=== PATIENT | female | born 1950 ===

== ENCOUNTER → 2022-03-24 08:34 | Outpatient (BNVA) | payer MEDICARE, MEDICAID, SELFPAY | PROVIDERS: Visit Provider Psychiatry & Neurology Neurology | DX: R41.89 Other symptoms and signs involving cognitive functions and awareness (principal); R46.89 Other symptoms and signs involving appearance and behavior | CPT/HCPCS: 99202 ==

== ENCOUNTER 2022-04-04 19:10 | Outpatient (REF) | payer MEDICARE, MEDICAID, SELFPAY ==
--- NOTE | ~2022-04-04 | MR_ITS ---
EXAMINATION: MR BRAIN WITHOUT CONTRAST CLINICAL INFORMATION: 72-year-old with self-reported repetitive behavior and headaches. Other symptoms and signs involving cognitive functions and awareness. COMPARISON: None TECHNIQUE: Routine multiplanar multisequence MR imaging of the brain was done without IV contrast. FINDINGS: Brain Volume: Moderate generalized diffuse parenchymal volume loss with bilateral parasylvian predominance is suspected within the limitations of qualitative assessment. Structural: No malformations. Brain and Meninges: DWI sequence demonstrates no restricted diffusion to suggest acute or subacute cerebral ischemia. Gradient refocused imaging demonstrates no abnormal susceptibility-weighted signal loss to suggest hemorrhage, hemosiderin staining or abnormal mineralization. The brain parenchyma shows normal signal intensity on the other pulse sequences and is otherwise normal in morphology. No extra-axial fluid collections, significant space-occupying process or mass effect. Ventricles and Subarachnoid Spaces: The ventricular system and subarachnoid spaces are approximately proportional to the degree of parenchymal volume loss, without hydrocephalus. Orbital Structures: The visualized orbital structures are grossly unremarkable within the limitations of the study. Vascular: Signal voids are noted in the visualized major intracranial vessels. Osseous Structures, Sinuses/Mastoids, Extracranial Soft Tissues: Discogenic degenerative changes and spondylosis at C3-C4, C4-C5 and C5-C6, with degenerative marrow signal changes along the endplates at these levels. Otherwise marrow signal intensity is homogenous and within normal limits. Minor mucosal thickening in the left maxillary sinus with a possible tiny air-fluid level. The visualized extra cranial soft tissue structures are grossly unremarkable. MR/MR head/brain wo con IMPRESSION: 1. No acute intracranial process. No evidence for infarction, hemorrhage, extra-axial fluid collection, space-occupying process, mass effect or hydrocephalus. 2. Moderate generalized diffuse parenchymal volume loss with bilateral parasylvian predominance suspected within the limitations of qualitative assessment. 3. Upper cervical degenerative changes. 4. Minor mucosal thickening in the left maxillary sinus with a possible tiny air-fluid level.
== END 2022-04-04 19:11 | disposition home or self-care (01) ==
LOC: HO.MRI 19:10
PROVIDERS: Visit Provider Nurse Practitioner Family
DX: R41.89 Other symptoms and signs involving cognitive functions and awareness (principal); R46.89 Other symptoms and signs involving appearance and behavior; I10 Essential (primary) hypertension; E78.5 Hyperlipidemia, unspecified
CPT/HCPCS: 70551

== ENCOUNTER → 2022-04-24 09:29 | Outpatient (BNVA) | payer MEDICARE, MEDICAID, SELFPAY | PROVIDERS: Visit Provider Nurse Practitioner Family | DX: R41.89 Other symptoms and signs involving cognitive functions and awareness (principal); R46.89 Other symptoms and signs involving appearance and behavior; F41.9 Anxiety disorder, unspecified | CPT/HCPCS: 99212 ==

== ENCOUNTER → 2022-05-26 08:31 | Outpatient (BNVA) | payer MEDICARE, MEDICAID, SELFPAY | PROVIDERS: Visit Provider Nurse Practitioner Family | DX: R41.89 Other symptoms and signs involving cognitive functions and awareness (principal); R46.89 Other symptoms and signs involving appearance and behavior; F41.9 Anxiety disorder, unspecified; Z79.899 Other long term (current) drug therapy | CPT/HCPCS: 99212 ==

== ENCOUNTER → 2022-06-30 08:23 | Outpatient (BNVA) | payer MEDICARE, MEDICAID, SELFPAY | PROVIDERS: PCP Internal Medicine; Visit Provider Nurse Practitioner Family | DX: R41.89 Other symptoms and signs involving cognitive functions and awareness (principal); R46.89 Other symptoms and signs involving appearance and behavior; F41.9 Anxiety disorder, unspecified | CPT/HCPCS: 99212 ==

== ENCOUNTER 2022-11-22 09:23 | Outpatient (AMB) | payer MEDICARE, MEDICAID, SELFPAY ==
--- NOTE | 2022-11-22 09:19 | MHC.OFFVIS ---
Intake Vital Signs 11/22/22 09:23 Weight 165 lb 4 oz BP 122/82 Blood Pressure Location Lt brachial Position Sitting Pulse 91 Pulse Source Pulse Oximeter Pulse Oximetry (%) 100 Oxygen Delivery Method Room Air Intake Visit Reasons: f/u Memory Loss - LVM Intake Note: F/U memory loss, per daughter more repaddative questioning on what day or time it is District Medical Examiner Required: No Allergies No Known Allergies Allergy (Verified 11/22/22 09:21) HPI HPI Comments History of Present Illness Details 72 y/o female patient presents with her daughter in law for follow up of declined memory and anxiety. Pt is in daytime program, and she is more active in physically and cognitively. She can be mildly confused but overall her memory and cognitive function has improved. Pt is on memantine 28 mg ER daily. Denies side effects. Her hallucination is lot better, much manageable. Pt visit [place] and her mood has been stable. She is on sertraline 25 mg for anxiety. Pt sleeps a little better with seroquel 12.5 mg and melatonin 6 mg. Pt tried ativan and trazodone for anxiety and sleep in the past, but it did not help and also she woke up very groggy. ? Pt is independent in ADLs, but not cooking. She lives in her son's house. [facility] Medical History Anxiety GERD (gastroesophageal reflux disease) HTN (hypertension) Hyperlipidemia Hypothyroidism Family History Father Cancer Mother Cancer Brother Cancer Sister Tumors Social History (Updated 11/22/22 @ 09:23 by Carole Stephenson CMA) Alcohol intake: never Patient Tobacco Use Status: Never used Tobacco Review of Systems Const All systems reviewed & are unremarkable except as noted in HPI and below Physical Exam Vital Signs: Last Vital Signs Pulse 91 11/22/22 09:23 BP 122/82 11/22/22 09:23 Pulse Ox 100 11/22/22 09:23 Oxygen Delivery Method Room Air 11/22/22 09:23 Const General: cooperative Nutritional Appearance: average body habitus Orientation/consciousness: oriented to person and oriented to place Neuro General: oriented to person, oriented to place and tone normal Cranial nerves: Yes Bilaterally intact EOM present, Yes Nystagmus not present, Yes Normal facial strength present, Yes Midline tongue present and Yes Ability to bilaterally elevate shoulders present Cognition (Neuro): abnormal cognition Gait exam (Neuro): Antalgic gait present Psych Appearance: grossly normal Mental Status: mental status grossly normal Affect: normal affect Attitude: cooperative Assessment & Plan Assessment & Plan (1) Cognitive and behavioral changes: Comment: Likely dementia - alzheimers vs mixed Code(s): R41.89 - Other symptoms and signs involving cognitive functions and awareness; R46.89 - Other symptoms and signs involving appearance and behavior (2) Anxiety: Code(s): F41.9 - Anxiety disorder, unspecified Plan Advised patient to continue memantine 28 mg ER daily. Start donepezil 5 mg qHS. Continue to take sertraline 25 mg daily and supplement vitamin D. Continue quetiapine 12.5 mg qHS for hallucination and anxiety. Encouraged patient to participate more cognitive and physical activity. Pt may use PO melatonin 3-6 mg qHS. Medications: New donepezil 5 mg PO BEDTIME 90 days 90 tabs 1RF Coding Level of Care Code Est Pt Level 4 (36631) Diagnoses Cognitive and behavioral changes R41.89; R46.89 Anxiety F41.9
[2022-11-22 09:23] VITALS: BP 122/82; PULSE 91; O2SAT 100
== END 2022-11-22 09:38 | disposition home or self-care (01) ==
PROVIDERS: Visit Provider Nurse Practitioner Family
DX: R41.89 Other symptoms and signs involving cognitive functions and awareness (principal); F41.9 Anxiety disorder, unspecified
CPT/HCPCS: 99214

== ENCOUNTER → 2022-11-22 09:23 | Outpatient (BNVA) | payer MEDICARE, MEDICAID, SELFPAY | PROVIDERS: Visit Provider Nurse Practitioner Family | DX: R41.89 Other symptoms and signs involving cognitive functions and awareness (principal); R46.89 Other symptoms and signs involving appearance and behavior; F41.9 Anxiety disorder, unspecified | CPT/HCPCS: 99212 ==

== ENCOUNTER 2023-05-28 08:54 | Outpatient (AMB) | payer MEDICARE, MEDICAID, SELFPAY ==
--- NOTE | 2023-05-28 08:56 | A.OFFVIS_ITS ---
Intake Vital Signs 05/28/23 09:14 Height 5 ft 2 in Weight 179 lb 6 oz BMI 32.8 BP 120/80 Blood Pressure Location Rt brachial Position Sitting Pulse 94 Pulse Source Pulse Oximeter Pulse Oximetry (%) 97 Oxygen Delivery Method Room Air Intake Visit Reasons: 6m follow up-CONF Intake Note: Patient presents for 6 month f/u. Allergies No Known Allergies Allergy (Verified 05/28/23 09:13) HPI HPI Comments History of Present Illness Details 73 y/o female patient presents with her daughter in law for follow up of declined memory and anxiety. Pt is in daytime program, and she is more active in physically and cognitively. She can be mildly confused but overall her memory and cognitive function has improved. However, she keeps forgetting if she has had meals and asks her daughter in law if she has eaten yet. Pt is on memantine 28 mg ER daily. Denies side effects. Pt's daughter in law reports that she has hallucination rarely now. Pt sleeps a little better with seroquel 12.5 mg and melatonin 6 mg. Pt visit [place] and her mood has been stable. She is on sertraline 25 mg for anxiety. Pt tried ativan and trazodone for anxiety and sleep in the past, but it did not help and also she woke up very groggy. ? Pt is independent in ADLs, but not cooking. She lives in her son's house. [facility] Medical History Anxiety GERD (gastroesophageal reflux disease) HTN (hypertension) Hyperlipidemia Hypothyroidism Family History (Updated 05/28/23 @ 09:14 by Aydee Preciado CMA) Father Cancer Mother Cancer Brother Cancer Sister Tumors Brother Stroke Social History Alcohol intake: never Patient Tobacco Use Status: Never used Tobacco Review of Systems Const All systems reviewed & are unremarkable except as noted in HPI and below Physical Exam Vital Signs: Last Vital Signs Pulse 94 05/28/23 09:14 BP 120/80 05/28/23 09:14 Pulse Ox 97 05/28/23 09:14 Oxygen Delivery Method Room Air 05/28/23 09:14 BMI result Body Mass Index 32.8 Const General: cooperative Nutritional Appearance: average body habitus Orientation/consciousness: oriented to person and oriented to place Neuro General: oriented to person, oriented to place and tone normal Cranial nerves: Yes Bilaterally intact EOM present, Yes Nystagmus not present, Yes Normal facial strength present, Yes Midline tongue present and Yes Ability to bilaterally elevate shoulders present Cognition (Neuro): abnormal cognition Gait exam (Neuro): Antalgic gait present Psych Appearance: grossly normal Mental Status: mental status grossly normal Affect: normal affect Attitude: cooperative Assessment & Plan Assessment & Plan (1) Cognitive and behavioral changes: Comment: Likely dementia - alzheimers vs mixed Code(s): R41.89 - Other symptoms and signs involving cognitive functions and awareness; R46.89 - Other symptoms and signs involving appearance and behavior (2) Anxiety: Code(s): F41.9 - Anxiety disorder, unspecified Plan Advised patient to continue memantine 28 mg ER daily. Increase donepezil 10 mg qHS. Continue to take sertraline 25 mg daily and supplement vitamin D. Continue quetiapine 12.5 mg qHS for hallucination and anxiety. Encouraged patient to participate more cognitive and physical activity. Pt may use PO melatonin 3-6 mg qHS. Medications: New donepezil 10 mg PO BEDTIME 30 tabs 6RF 30 days Discontinued donepezil Discontinued Reason: Doctor's Order 5 mg PO BEDTIME 90 days 90 tabs 1RF Coding Level of Care Code Est Pt Level 4 (55170) Diagnoses Cognitive and behavioral changes R41.89; R46.89 Anxiety F41.9
[2023-05-28 09:14] VITALS: BP 120/80; PULSE 94; O2SAT 97; BMI 32.8
== END 2023-05-28 09:40 | disposition home or self-care (01) ==
PROVIDERS: PCP Internal Medicine; Visit Provider Nurse Practitioner Family
DX: R41.89 Other symptoms and signs involving cognitive functions and awareness (principal); F41.9 Anxiety disorder, unspecified
CPT/HCPCS: 99214

== ENCOUNTER → 2023-05-28 08:54 | Outpatient (BNVA) | payer MEDICARE, MEDICAID, SELFPAY | PROVIDERS: PCP Internal Medicine; Visit Provider Nurse Practitioner Family | DX: R41.89 Other symptoms and signs involving cognitive functions and awareness (principal); R46.89 Other symptoms and signs involving appearance and behavior; F41.9 Anxiety disorder, unspecified | CPT/HCPCS: 99212 ==

== ENCOUNTER 2023-11-26 09:22 | Outpatient (AMB) | payer MEDICARE, MEDICAID, SELFPAY ==
[2023-11-26 09:23] VITALS: BP 128/82
--- NOTE | 2023-11-26 09:23 | MHC.OFFVIS ---
Vital Signs 11/26/23 09:23 Weight 174 lb BP 128/82 Blood Pressure Location Rt brachial Position Sitting Intake Visit Reasons: 6m follow up-LVM Intake Note: Patient presents for 6 month follow up. Patient is getting aggressive when it comes to dressing and eating. Allergies No Known Allergies Allergy (Verified 11/26/23 09:28) Medication List - Last Reconciled 11/26/23 by DAHLIA Jacobs cholecalciferol (vitamin D3) 125 mcg PO DAILY donepezil 10 mg PO BEDTIME 30 days levothyroxine 25 mcg PO DAILY memantine 28 mg PO DAILY 30 days omeprazole 20 mg PO DAILY quetiapine 12.5 mg (1/2 x 25 mg) PO BEDTIME 30 days rosuvastatin 20 mg PO DAILY sertraline 25 mg PO DAILY HPI Comments Details: 73-yr-old female presents for f/u visit. Pt is accompanied by her dtr-in-law, Odalys. Tolerated increase in Donepazil well. Pt's cognition is better but there are some behaviors. She is particular with her clothing- will say that the clothes are too ugly, too tight, too loose, or the clothes are hurting her leg- a little while ago had stepped wrong and hurt her knee but this has gotten better. She is particular w/ what she eats- will feel the food id dry. Recently threw her chicken thigh at her granddtr- as she said it was dry. She may forget that she took her evening pills- and become adamant that she needs to retake her meds. She may argue w/ her son, that she took her shower already but has not. Dtr notes that overall they can usually redirect her. They try strategies to promote independence- offering clothing choices, food choices etc. Dtr notes that she will be going away for a work trip- her pt's dtr will help and sometimes w/ this change pt can have increased behaviors- has once left the house when her dtr was helping her. Wonders if they can have a prn Tx- has used Lorazepam 0.5mg prn and toelarted well during recent trip to [place]. Pt herself reports she is doing ok. States she eats, drinks well, just tries to minimize salt intake d/t her thyroid d/o. She has joint pain, shoulder pain. Uses Tylenol prn which helps. She goes to her program 5 days per week which she likes- plays games, puzzles, and has friends there. [facility] Medical History Anxiety GERD (gastroesophageal reflux disease) HTN (hypertension) Hyperlipidemia Hypothyroidism Family History Father Cancer Mother Cancer Brother Cancer Sister Tumors Brother Stroke Social History Alcohol intake: never Patient Tobacco Use Status: Never used Tobacco Physical Exam Vital Signs: Last Vital Signs BP 128/82 11/26/23 09:23 Const General: cooperative and no acute distress Resp Effort & Inspection: normal respiratory effort and able to speak in complete sentences Neuro Other: Alert to person and place. Respnds appropriately w/ STM lapses. Can state it is summer. Unable to state month, date, year. General: CN's II-XI intact bilaterally Motor exam (neuro): 5/5 motor strength present throughout Psych Appearance: grossly normal Assessment & Plan Assessment & Plan (1) Dementia: Comment: Likely Alzheimer's. Brain MRI w/o indications of vascular insults. Code(s): F03.90 - Unspecified dementia, unspecified severity, without behavioral disturbance, psychotic disturbance, mood disturbance, and anxiety Category: Medical (2) Cognitive and behavioral changes: Comment: Likely dementia - alzheimers vs mixed Code(s): R41.89 - Other symptoms and signs involving cognitive functions and awareness; R46.89 - Other symptoms and signs involving appearance and behavior Category: Medical Plan Continue: Memantine 28 mg ER daily. Donepezil 10 mg qHS. Sertraline 25 mg daily Vitamin D supplement Quetiapine 12.5 mg qHS for hallucination and anxiety. May take extra 1/2 tab per day prn. If ineffective, consider Lorazepam 0.5mg prn. Melatonin 3-6 mg qHS prn sleep. Continue to engage in regular cognitive and physical activity. Continue day program. Encouraged family to continue behavioral modification strategies to redirect pt, offer limited choices, not engage in direct confrontations/arguments. Alzheimer's association website is a good resource. Medications: Changed From memantine 28 mg PO DAILY 30 days 30 ea 6RF To memantine 28 mg PO DAILY 90 days 90 ea 3RF From cholecalciferol (vitamin D3) 125 mcg PO DAILY 30 caps 6RF To cholecalciferol (vitamin D3) 125 mcg PO DAILY 90 days 90 caps 3RF From donepezil 10 mg PO BEDTIME 30 days 30 tabs 6RF To donepezil 10 mg PO BEDTIME 90 days 90 tabs 3RF From quetiapine 12.5 mg (1/2 x 25 mg) PO BEDTIME 30 days 15 tabs 3RF To quetiapine may take extra 1/2 tab per day prn agitation. 12.5 mg (1/2 x 25 mg) PO BEDTIME 90 days 90 tabs 1RF Coding Level of Care Code Est Pt Level 4 (34687) Diagnoses Dementia F03.90 Cognitive and behavioral changes R41.89; R46.89
== END 2023-11-26 10:16 | disposition home or self-care (01) ==
PROVIDERS: PCP Internal Medicine; Visit Provider Nurse Practitioner Family
DX: F03.90 Unspecified dementia, unspecified severity, without behavioral disturbance, psychotic disturbance, mood disturbance, and anxiety (principal); R41.89 Other symptoms and signs involving cognitive functions and awareness; R46.89 Other symptoms and signs involving appearance and behavior
CPT/HCPCS: 99214

== ENCOUNTER → 2023-11-26 09:22 | Outpatient (BNVA) | payer MEDICARE, MEDICAID, SELFPAY | PROVIDERS: PCP Internal Medicine; Visit Provider Nurse Practitioner Family | DX: F03.90 Unspecified dementia, unspecified severity, without behavioral disturbance, psychotic disturbance, mood disturbance, and anxiety (principal); R41.89 Other symptoms and signs involving cognitive functions and awareness | CPT/HCPCS: 99212 ==

== ENCOUNTER 2024-06-03 08:49 | Outpatient (AMB) | payer MEDICARE, MEDICAID, SELFPAY ==
--- NOTE | 2024-06-03 08:57 | A.OFFVIS_ITS ---
Vital Signs 06/03/24 08:58 Weight 183 lb BP 150/90 H Blood Pressure Location Lt brachial Position Sitting Pulse 70 Pulse Source Pulse Oximeter Pulse Oximetry (%) 96 Oxygen Delivery Method Room Air Intake Visit Reasons: F/U 6mo Intake Note: Patient presents follow up Dementia medication follow up Automotive Glass Specialist Required: No Allergies No Known Allergies Allergy (Verified 06/03/24 09:01) Medication List - Last Reconciled 06/03/24 by DAHLIA Jacobs cholecalciferol (vitamin D3) 125 mcg PO DAILY 90 days donepezil 10 mg PO BEDTIME 90 days levothyroxine 25 mcg PO DAILY memantine 28 mg PO DAILY 90 days omeprazole 20 mg PO DAILY quetiapine 12.5 mg (1/2 x 25 mg) PO BEDTIME 90 days rosuvastatin 20 mg PO DAILY sertraline 25 mg PO DAILY HPI Comments Details: 73-yr-old female presents for f/u visit for dementia. Pt is accompanied by her dtr-in-law, Odalys. Patient denies interval history changes. However, she states she is quite bothered by right ear ringing. She denies recent URI s/s. Recently was prescribed drops to reduce wax buildup, harvest was not helpful. She denies dizziness, headaches, ear pain. Overall patient is better. Pt's cognition remain stable. Though there is still forgetfulness repetitiveness. She continues to use support with ADLs and IADLs. She is she is still particular w/ what she eats- will feel the food id dry. [id number] also notes she is in of a new pair dentures, however replacement was denied by insurance due to concern patient would lose the dentures. However, [id number] notes since she son, patient has not lost any important items as per family and the D program provide 247 support. She is no longer forgetting to take medications, though at times she forget that she took family has to show her that she did. Patient is having less behaviors, family just occasionally needs to use p.r.n. quetiapine- which is helpful. She continues to go to her day program 5 days per week which she likes- plays games, puzzles, and has friends there. [facility] Medical History Anxiety GERD (gastroesophageal reflux disease) HTN (hypertension) Hyperlipidemia Hypothyroidism Family History Father Cancer Mother Cancer Brother Cancer Sister Tumors Brother Stroke Social History Alcohol intake: never Patient Tobacco Use Status: Never used Tobacco Physical Exam Vital Signs: Last Vital Signs Pulse 70 06/03/24 08:58 BP 150/90 H 06/03/24 08:58 Pulse Ox 96 06/03/24 08:58 Oxygen Delivery Method Room Air 06/03/24 08:58 Const General: cooperative and no acute distress HEENT Other: Right external ear canal fully occluded due to presence of wax Left external ear canal mild wax, with normal TM. No external ear pain. Resp Effort & Inspection: normal respiratory effort and able to speak in complete sentences Neuro Other: Alert to person and place. Responds appropriately w/ STM lapses. General: CN's II-XI intact bilaterally Motor exam (neuro): 5/5 motor strength present throughout Psych Appearance: grossly normal Assessment & Plan Assessment & Plan (1) Dementia: Comment: Likely Alzheimer's. Brain MRI w/o indications of vascular insults. Code(s): F03.90 - Unspecified dementia, unspecified severity, without behavioral disturbance, psychotic disturbance, mood disturbance, and anxiety Category: Medical (2) Cognitive and behavioral changes: Comment: Likely dementia - alzheimers vs mixed Code(s): R41.89 - Other symptoms and signs involving cognitive functions and awareness; R46.89 - Other symptoms and signs involving appearance and behavior Category: Medical Plan For dementia and behavioral changes:: Memantine 28 mg ER daily. Donepezil 10 mg qHS. Sertraline 25 mg daily Vitamin D supplement Quetiapine 12.5 mg qHS for hallucination and anxiety. May take extra 1/2 tab per day prn. Melatonin 3-6 mg qHS prn sleep. If patient wants to travel again, we will supply a short course of Lorazepam 0.5mg prn- which has been beneficial in the past. Continue 24/7 supportive care. Patient would benefit from the fear of well fitting dentures, as this would likely improve patient's nutritional intake. Patient lives supportive environment, and is well supervised, risk for losing dentures will be very minimal. Continue to engage in regular cognitive and physical activity. Continue day program. Continue behavioral modification strategies to redirect pt, offer limited choices, not engage in direct confrontations/arguments. Alzheimer's association website is a good resource. For right ear tinnitus: Trial another course of OTC ear drops for wax removal/flush. Advised to use care and not insert anything into the ear canal to avoid ruptured TM. If ineffective, advised to speak with PCP regarding ENT consult. Pt to follow-up in 6 months or sooner prn. Medications: Refilled quetiapine may take extra 1/2 tab per day prn agitation. 12.5 mg (1/2 x 25 mg) PO BEDTIME 90 tabs 1RF 90 days Coding Level of Care Code Est Pt Level 4 (71210) Diagnoses Dementia F03.90 Cognitive and behavioral changes R41.89; R46.89
[2024-06-03 08:58] VITALS: BP 150/90; PULSE 70; O2SAT 96
--- OUTSIDE RECORDS SUMMARY | 2024-06-03 09:30 | XMS_ITS | Encounter Summary ---
Author Organization [facility] Address [address] [place] [address] Care Team Providers Care Online Publisher Name Role Phone Teodoro Fernandez MD Primary Care Provider [phone] Reason for Visit * Reason Comments Leg Pain Encounter Details Date Type Department Care Team (Late st Contact Info) Description 05/16/2024 2:30 PM EST Office Visit Restaurant Host/Hostess - [facility] [address] [place] [address] Herve Stiles PA [address] [place] [address] Hypothyroidism, unspecified type (Primary Dx); Mixed hyperlipidemia; Chronic pain of right knee; Dementia, unspecified dementia severity, unspecified dementia type, unspecified whether behavioral, psychotic, or mood disturbance or anxiety (CMS/FORMERLY [facility]) Social History Tobacco Use Types Packs/Day Years Used Date Smoking Tobacco: Never Smokeless Tobacco: Never Alcohol Use Standard Drinks/Week Comments Never 0 (1 standard drink = 0.6 oz pur e alcohol) Comments Unknown Sex and Gender Information Value Date Recorded Sex Assigned at Not on file Legal Sex Female 9:07 AM EST Gender Identity Not on file Sexual Orientation Not on file documented as of this encounter Last Filed Vital Signs Vital Sign Reading Time Taken Comments Blood Pressure 128/86 05/16/2024 2:34 PM EST Pulse 72 05/16/2024 2:34 PM EST Temperature - - Respiratory Rate - - Oxygen Saturation - - Inhaled Oxygen Concentration - - Weight 82.9 kg (182 lb 12.8 oz) 05/16/2024 2:34 PM EST Height - - Body Mass Index 33.43 11/12/2023 12:02 PM EDT documented in this encounter Ordered Prescriptions Prescription Sig Dispense Quantity Refills Last Filled Start Date End Date levothyroxine (SYNTHROID, LEVOTHROID) 75 mcg tablet Take 1 tablet (75 mcg total) by mouth 1 (one) time each day. 90 each 1 05/19/2024 6 carbamide peroxide (DEBROX) 6.5 % otic solution Administer 5-10 drops into the right ear 2 (two) times a day for 4 days. 15 mL 05/16/2024 5 acetaminophen (Tylenol 8 Hour) 650 mg 8 hr tablet Take 1 tablet (650 mg total) by mouth every 8 (eight) hours if needed for mild pain for up to 10 days. Do not crush, chew, or split. 90 tablet 1 05/16/2024 5 documented in this encounter Progress Notes * TASHA Otero - 05/16/2024 2:30 PM ESTAddended by: HERVE STILES on: 05/19/2024 09:45 AM Modules accepted: Orders * TASHA Otero - 05/16/2024 2:30 PM EST CHIEF COMPLAINT: Leg Pain IDENTIFIER: Kyung Alexandra is a 74 y.o. old female. Here with son. HPI: Kyung Alexandra presents secondary to Follow-up on chronic conditions. History of dementia, GERD, hyperlipidemia, hypothyroidism. Last seen 11/12/2023 for follow-up of chronic conditions and annual wellness visit. No changes to meds. She does mention right knee pain. X-rays from a year ago showed moderate arthritis of the right knee. Right now pain is mild but does experience increased severity and swelling occasionally. Patient son informs me that this typically gets worse with colder weather. No recent injuries. She has not tried anything for relief. Also mentions intermittent right ear pain ongoing for the last 4 months. This happens very infrequently. Last episode was yesterday. No dizziness, tinnitus, fevers, chills. Hearing is okay. Dementia: Seroquel 12.5 mg nightly, Zoloft 25 mg daily, Aricept 10 mg nightly, Namenda 7 mg daily. Patient has been doing much better since being started on this regimen through neurology. Hypothyroidism: Levothyroxine 50 mcg daily. Last TSH 12/18/2023 slightly elevated. Has been compliant with levothyroxine every morning on an empty stomach. HLD: Crestor 20 mg nightly. No myalgia. Lab Results Component Value Date CHOL 192 04/21/2022 TRIG 69 04/21/2022 HDL 95 04/21/2022 ROS: See HPI for pertinent positives and detailed description. HEENT: See HPI Cardiovascular: Denies palpitations, chest pain Respiratory: Denies SOB Musculoskeletal: See HPI PAST MEDICAL HISTORY: Patient Active Problem List Diagnosis Date Noted Hypothyroidism Dementia ([facility]) 09/12/2022 Hyperlipidemia 03/06/2022 Gastroesophageal reflux disease 06/14/2021 Past Surgical History: Procedure Laterality Date OTHER SURGICAL HISTORY PROCEDURE: DENIES PREVIOUS SURGERY SOCIAL HISTORY: Social History Tobacco Use Smoking status: Never Smokeless tobacco: Never Substance Use Topics Alcohol use: Never FAMILY HISTORY: Family History Problem Relation Name Age of Onset Alzheimer's disease Father Hypertension Brother Family Status Relation Name Status Father Brother Alive Mother No partnership data on file MEDICATIONS DISCONTINUED/REORDERED: Medications Discontinued During This Encounter Medication Reason predniSONE (DELTASONE) 20 mg tablet Discontinued by another clinician ACTIVE MEDICATIONS: Outpatient Medications Marked as Taking for the 05/16/24 encounter (Office Visit) with TASHA Menjivar Medication Sig Dispense Refill cholecalciferol (VITAMIN D-3) 25 mcg (1,000 unit) tablet Take 1,000 Int'l Units by mouth daily. donepeziL (ARICEPT) 10 mg tablet Take 1 tablet (10 mg total) by mouth. at bedtime. levothyroxine (SYNTHROID, LEVOTHROID) 50 mcg tablet Take 1 Tablet by mouth daily for 360 days. LORazepam (ATIVAN) 0.5 mg tablet Take 1 Tablet by mouth daily as needed for Anxiety (prior to flying). memantine (NAMENDA XR) 7 mg extended release capsule Take 1 capsule (7 mg total) by mouth 1 (one) time each day. 90 capsule 1 omeprazole (PriLOSEC) [address] capsule Take 1 capsule (20 mg total) by mouth 1 (one) time each day. QUEtiapine (SEROquel) 25 mg tablet Take 0.5 tablets (12.5 mg total) by mouth at bedtime. rosuvastatin (CRESTOR) 20 mg tablet Take 1 tablet (20 mg total) by mouth 1 (one) time each day. 90 tablet 1 sertraline (ZOLOFT) 25 mg tablet TAKE 1 TABLET BY MOUTH EVERY DAY 90 tablet 1 ALLERGIES: No Known Allergies PHYSICAL EXAM: Visit Vitals BP 128/86 Pulse 72 Wt 82.9 kg (182 lb 12.8 oz) BMI 33.43 kg/m?? Smoking Status Never BSA 1.84 m?? The patient is overweight. Approaches towards weight loss are encouraged per recommendations below: -Reviewed reduction and fatty/greasy/fast foods, increased aerobic exercise, and eating 4-5 small meals consistently throughout the day General: Alert, calm, no acute distress. HEENT: Normocephalic/atraumatic, EOMI. cerumen impaction right side. Left TM and canal normal. Skin: Warm, moist. Cardiovascular: Regular rate and rhythm. No murmurs, rubs, or gallops Lungs: CTA, no crackles, wheezes or rhonchi. Musculoskeletal: No edema, erythema of the knee. Some stiffness and tenderness with knee extension.No TTP bilateral joint line spaces. Neuro: COA x 1 Psych: mood and affect appropriate for situation IMAGING: NA IMPRESSION: 1. Hypothyroidism, unspecified type 2. Mixed hyperlipidemia 3. Chronic pain of right knee 4. Dementia, unspecified dementia severity, unspecified dementia type, unspecified whether behavioral, psychotic, or mood disturbance or anxiety ([facility]) PLAN: Right knee pain: Suspect OA. Recommend Tylenol arthritis 650 mg 3 times daily as needed. Right ear pain: Exam shows cerumen impaction. Provided with Debrox and will have patient return in 1 week for flush. Dementia: Continue with neurology on current regimen. Hypothyroidism: Repeat TSH. Remain on levothyroxine 50 mcg daily. HLD: Update CMP. Remain on Crestor 20 mg nightly. We have discussed the above medication(s) at length. I have explained the indications as well as common side effects and risks. The patient understands and accepts these risks and wishes to proceed with the pharmacological treatment. All of the patient's questions were answered at this time. Pt voices understanding and is in agreement with the above plan. Symptoms and/or concerns that should warrant emergency evaluation/treatment have been discussed. Follow up evaluation will be based upon the plan as stated. If any questions should arise in the interim/future please contact the officefor assistance. Medication and lab orders: Orders Placed This Encounter Procedures Thyroid stimulating hormone with reflex to free t4 and free t3 Comprehensive metabolic panel Other orders: None I have maintained a long-term, longitudinal relationship with this patient leading to the extensivework up, and management associated with the medical care of this patient. TASHA Otero on 05/16/2024 at 2:52 PM EST documented in this encounter Plan of Treatment Upcoming Encounters Date Type Department Care Team (Late st Contact Info) Description 06/19/2024 1:00 PM EDT Office Visit Restaurant Host/Hostess - [facility] [address] [place] [address] Herve Stiles PA [address] [place] [address] Scheduled Orders Name Type Priority Associated Diagnoses Orde r Schedule Thyroid stimulating hormone with reflex to free t4 and free t3 Lab Routine Hypothyroidism, unspecified type 1 Occurrences starting 05/19/2024 until 05/19/2025 documented as of this encounter Results * (ABNORMAL) Comprehensive metabolic panel (05/16/2024 3:23 PM EST) Sodium 144 133 - 145 mmol/L LAB CHEMISTRY METHOD 05/16/2024 7:[address] [facility] Potassium 4.2 3.5 - 5.5 mmol/L LAB CHEMISTRY METHOD 05/16/2024 7:[address] [facility] Chloride 110 96 - 110 mmol/L LAB CHEMISTRY METHOD 05/16/2024 7:[address] [facility] CO2 32 21 - 32 mmol/L LAB CHEMISTRY METHOD 05/16/2024 7:[address] [facility] Anion Gap 2(L) 3 - 11 LAB CHEMISTRY METHOD 05/16/2024 7:[address] [facility] Glucose 73 70 - 100 mg/dL LAB CHEMISTRY METHOD 05/16/2024 7:[address] [facility] BUN 15 5 - 25 mg/dL LAB CHEMISTRY METHOD 05/16/2024 7:[address] [facility] Creatinine 0.66 0.50 - 1.10 mg/dL LAB CHEMISTRY METHOD 05/16/2024 7:[address] [facility] eGFR 92 >=60 mL/min/1. 73m2 LAB CHEMISTRY METHOD 05/16/2024 7:[address] [facility] Comment:Calculation based on the??Chronic Kidney Disease Epidemiology Collaboration (CKD-EPI) equation refit??without adjustment for race. BUN/Creatinine Ratio 22.7 LAB CHEMISTRY METHOD 05/16/2024 7:[address] [facility] Calcium 9.7 8.5 - 10.5 mg/dL LAB CHEMISTRY METHOD 05/16/2024 7:[address] [facility] AST (SGOT) 22 10 - 42 unit/L LAB CHEMISTRY METHOD 05/16/2024 7:[address] [facility] ALT (SGPT) 21 10 - 60 unit/L LAB CHEMISTRY METHOD 05/16/2024 7:[address] [facility] Alkaline Phosphatase 89 42 - 121 unit/L LAB CHEMISTRY METHOD 05/16/2024 7:[address] [facility] Total Protein 7.9 6.0 - 8.0 g/dL LAB CHEMISTRY METHOD 05/16/2024 7:[address] [facility] Albumin 4.0 3.2 - 5.0 g/dL LAB CHEMISTRY METHOD 05/16/2024 7:[address] [facility] Total Bilirubin 0.3 0.0 - 1.4 mg/dL LAB CHEMISTRY METHOD 05/16/2024 7:[address] [facility] Blood Venous blood specimen / Unknown Venipuncture / Unknown 05/16/2024 3:23 PM EST 05/16/2024 3:23 PM EST Herve [facility] BLOOD ORDERABLES Fi nal Result Performing Organization Address [facility] Co de Phone Number [facility] [address] [place] [address], [place] [phone] * (ABNORMAL) Thyroid stimulating hormone with reflex to free t4 and free t3 (05/16/2024 3:23 PM EST) TSH 8.72(H) 0.40 - 4.00 mcIU/mL LAB CHEMISTRY METHOD 05/16/2024 7:[address] [facility] Blood Venous blood specimen / Unknown Venipuncture / Unknown 05/16/2024 3:23 PM EST 05/16/2024 3:23 PM EST H[facility] BLOOD ORDERABLES Fi nal Result Performing Organization Address [facility] de Phone Number [facility] [address] [place] [address], [place] [phone] documented in this encounter Visit Diagnoses Diagnosis Hypothyroidism, unspecified type- Primary Mixed hyperlipidemia Chronic pain of right knee Dementia, unspecified dementia severity, unspecified dementia type, unspecified whether behavioral, psychotic, or mood disturbance or anxiety (CMS/[facility]) documented in this encounter Discontinued Medications Medication Sig Discontinue Reason Start Date End Da te predniSONE (DELTASONE) 20 mg tablet Take 1 tablet (20 mg total) by mouth 2 (two) times a day. Discontinued by another clinician 08/24/2023 05/16/2024 levothyroxine (SYNTHROID, LEVOTHROID) 50 mcg tablet Take 1 Tablet by mouth daily for 360 days. 12/19/2023 05/19/2024 documented as of this encounter Care Teams Online Publisher Relationship Specialty Start Date End Date Teodoro Fernandez MD [address] [place] [address] [place] [address] PCP - General Internal Medicine 03/10/24 documented as of this encounter
--- OUTSIDE RECORDS SUMMARY | 2024-06-03 09:30 | XMS_ITS | Encounter Summary ---
Author Organization [facility] Address [address] [place] [address] Care Team Providers Care Camera Systems Engineer Name Role Phone Teodoro Fernandez MD Primary Care Provider [phone] Encounter Details Date Type Department Care Team (Late st Contact Info) Description 05/16/2024 Telephone In Store Marketing Representative - [facility] [address] [place] [address] Afia Rhoades [place] Social History Tobacco Use Types Packs/Day Years [...] on file documented as of this encounter Progress Notes * Afia Rhoades MA - 05/16/2024 4:03 PM EST error documented in this encounter Plan of Treatment Upcoming Encounters Date Type Department Care Team (Late st Contact Info) Description 06/19/2024 1:00 PM EDT Office Visit In Store Marketing Representative - [facility] [address] [place] [address] Tito Stiles PA [address] [place] [address] documented as of this encounter Visit Diagnoses Not on filedocumented in this encounter Care Teams Camera Systems Engineer Relationship Specialty Start Date End Date Teodoro Fernandez MD [address] [facility] [place] [address] PCP - General Internal Medicine 03/10/24 documented as of this encounter
--- OUTSIDE RECORDS SUMMARY | 2024-06-03 09:30 | XMS_ITS | Clinical Summary ---
Author Organization [facility] Address [address] [place] [address] Care Team Providers Care Redye Hand Name Role Phone Kayla Patrick PA-C Primary Care Provider [phone] Source Comments PLEASE NOTE, if this patient is a minor, it may be UNLAWFUL to discuss sensitive information that is contained in these records (such as FAMILY PLANNING, MENTAL HEALTH or SUBSTANCE ABUSE) with the minor patient's parent or other person without the patient's specific authorization.[facility] Allergies No known active allergies Medications carbamide peroxide (DEBROX) 6.5 % otic solutionIndication s:Impacted cerumen, bilateral Place 5 Drops into the left ear 2 (two) times daily 15 mL 1 Active omeprazole (PRILOSEC) [address] capsuleIndications :Gastroesophageal reflux disease, unspecified whether esophagitis present Take 1 Capsule by mouth every morning before breakfast 90 Capsule 1 1 Active sertraline (ZOLOFT) 100 mg tabletIndications: Psychophysiologica l insomnia Take 1 Tablet by mouth once daily 30 Tablet 1 1 Active simvastatin (ZOCOR) 40 mg tabletIndications: Mixed hyperlipidemia Take 1 Tablet by mouth nightly at bedtime 90 Tablet 1 1 Active levothyroxine 50 mcg tabletIndications: Hypothyroidism, unspecified type Take 1 Tablet by mouth once daily EVERY MORNING WITH A GLASS OF WATER AND ON AN EMPTY STOMACH 90 Tablet 1 1 Active Active Problems Problem Noted Date Diagnosed Date Depression with anxiety 07/08/2020 Essential hypertension 07/08/2020 Psychophysiological insomnia 07/08/2020 GERD (gastroesophageal reflux disease) 1 Hypothyroid 07/08/2020 Mixed hyperlipidemia 07/08/2020 Neuropathy 07/08/2020 Memory problem 07/08/2020 Family History Medical History Relation Name Comments Alzheimer's Disease Father Alzheimer's Disease Mother Relation Name Status Comments Father Mother Social History Tobacco Use Types Packs/Day Years Used Date Smoking Tobacco: Never Smokeless Tobacco: Never Alcohol Use Standard Drinks/Week Comments Never 0 (1 standard drink = 0.6 oz pur e alcohol) Social Connections Answer Date Recorded Connectedness 0 12/23/2023 Financial Resource Strain Answer Date R ecorded Financial Resource Strain 0 2020 Stress Answer Date Recorded Stress 0 07/08/2020 Physical Activity Answer Date Recorded Physical Activity 0 07/08/2020 Food Insecurity Answer Date Recorded Food 0 12/27/2023 Transportation Needs Answer Date Record ed Transportation 0 07/08/2020 Housing Stability Answer Date Recorded Housing 0 07/08/2020 Safety and Environment Answer Date Sivakumar rded Safety 0 07/08/2020 Utilities Answer Date Recorded Utilities 0 07/08/2020 Employment Answer Date Recorded Stress 0 12/23/2023 Comments No Sex and Gender Information Value Date Recorded Sex Assigned at Female 07/08/2020 3:23 PM PDT Legal Sex Female 1:41 PM PDT Gender Identity Female 07/08/2020 3:23 PM PDT Sexual Orientation Straight 07/08/2020 3: 23 PM PDT Last Filed Vital Signs Vital Sign Reading Time Taken Comments Blood Pressure 128/90 07/08/2020 3:39 PM EDT Pulse 68 07/08/2020 3:39 PM EDT Temperature 36.5 ??C (97.7 ??F) 07/08/2020 3:39 PM ED T Respiratory Rate 20 07/08/2020 3:39 PM EDT Oxygen Saturation - - Inhaled Oxygen Concentration - - Weight 81.2 kg (179 lb) 07/08/2020 3:39 PM EDT Height 158 cm (5' 2.21 ) 07/08/2020 3:39 PM EDT Body Mass Index 32.52 07/08/2020 3:39 PM EDT Plan of Treatment Health Maintenance Due Date Last Done Comments Hepatitis C Screening 1949 Lipid Screening 1949 TSH Monitoring 1949 Tobacco Screening 1949 Medicare Annual Wellness Visit 1967 Imm-DTaP/Tdap/Td (1 - Tdap) 1968 CT Colonography 1994 Colonoscopy 1994 Colorectal Cancer Screening 1994 FIT/gFOBT 1994 Fecal DNA 1994 Flexible Sigmoidoscopy 1994 Imm-Pneumococcal 65+ (1 of 1 - PCV) 1999 Imm-Zoster, Recombinant (1 of 2) 1999 Bone Density Screening 2014 Falls Prevention 2014 Depression Monitoring 10/07/2020 07/08/2020 Breast Cancer Screening (Mammogram) 07/07/2022 07/07/2021, 07/19/2020, 07/19/2020, Additional history exists [id number] ( - season) 2023 Imm-Influenza (#1) 2023 11/27/2018, 1 05/14/2016, 2016 Alcohol and Drug Screen 04/02/2024 07/08/2020 Procedures Procedure Name Priority Date/Time Associated Diagnosis Comments REFERRAL FOR MAMMOGRAM Routine 07/07/2021 9:42 AM EDT Encounter for screening mammogram for malignant neoplasm of breast from Last 3 Months or Most Recently Relevant to Health Maintenance Results * REFERRAL FOR MAMMOGRAM (07/07/2021 9:42 AM EDT) Kyala Patrick PA-C IMG RFL MAMMO Final Result from Last 3 Months or Most Recently Relevant to Health Maintenance Insurance [place] - [place] Care Teams Redye Hand Relationship Specialty Start Date End Date Kyala Patrick PA-C [address] [place] [address] PCP - General FAMILY MEDICINE, [place] 07/07/20
--- OUTSIDE RECORDS SUMMARY | 2024-06-03 09:30 | XMS_ITS | Encounter Summary ---
Author Organization [facility] Address [address] [place] [address] Care Team Providers Care Associate Agent Insurance Sales Name Role Phone Teodoro Fernandez MD Primary Care Provider Reason for Visit * Reason Onset Date Comments Faxed Order 05/12/2024 Kiana ODELL Encounter Details Date Type Department Care Team (Late st Contact Info) Description 05/12/2024 Telephone Pediatrics - [facility] [address] [place] [address] Teodoro Fernandez MD [address] [place] [address] Faxed Order (Kiana ODELL ) Social History Tobacco Use Types Packs/Day Years [...] Progress Notes * Afia Rhoades [place] - 05/15/2024 9:47 AM EST Faxed back * Dian Palomino - 05/12/2024 11:48 AM EST Orders from [facility] placed in Teodoro Fernandez MD bin. Please complete and fax back to [phone]. Thank you. documented in this encounter Plan of Treatment Upcoming Encounters Date Type Department Care Team (Late st Contact Info) Description 06/19/2024 1:00 PM EDT Office Visit Manager R D - [facility] [address] [place] [address] Tito Stiles PA [address] [place] [address] documented as of this encounter Visit Diagnoses Not on filedocumented in this encounter Care Teams Associate Agent Insurance Sales Relationship Specialty Start Date End Date Teodoro Fernandez MD [address] [place] [address] PCP - General Internal Medicine 03/10/24 documented as of this encounter
--- OUTSIDE RECORDS SUMMARY | 2024-06-03 09:30 | XMS_ITS | Clinical Summary ---
Author Organization [facility] [address] [facility] Building Address [address] [place] [address] Phone Care Team Providers Care Furniture Detailer Name Role Phone Teodoro Fernandez MD Primary Care Provider [phone] Allergies No known active allergies Medications sertraline (ZOLOFT) 25 mg tablet TAKE 1 TABLET BY MOUTH EVERY DAY 90 tablet 1 02/06/20 24 Active cholecalcifero l (VITAMIN D-3) 25 mcg (1,000 unit) tablet Take 1,000 Int'l Units by mouth daily. Active donepeziL (ARICEPT) 10 mg tablet Take 1 tablet (10 mg total) by mouth. at bedtime. Active LORazepam (ATIVAN) 0.5 mg tablet Take 1 Tablet by mouth daily as needed for Anxiety (prior to flying). 09/13/19 23 Active omeprazole (PriLOSEC) [address] capsule Take 1 capsule (20 mg total) by mouth 1 (one) time each day. 04/25/19 24 Active QUEtiapine (SEROquel) 25 mg tablet Take 0.5 tablets (12.5 mg total) by mouth at bedtime. 11/12/19 24 Active memantine (NAMENDA XR) 7 mg extended release capsule Take 1 capsule (7 mg total) by mouth 1 (one) time each day. 90 capsule 1 04/28/19 25 Active rosuvastatin (CRESTOR) 20 mg tablet Take 1 tablet (20 mg total) by mouth 1 (one) time each day. 90 tablet 1 04/25/19 25 Active levothyroxine (SYNTHROID, LEVOTHROID) 75 mcg tablet Take 1 tablet (75 mcg total) by mouth 1 (one) time each day. 90 each 1 05/19/19 25 026 Active levothyroxine (SYNTHROID, LEVOTHROID) 50 mcg tablet Take 1 Tablet by mouth daily for 360 days. 12/19/19 24 025 Discontinued predniSONE (DELTASONE) 20 mg tablet Take 1 tablet (20 mg total) by mouth 2 (two) times a day. 08/24/19 24 025 Discontinued(Di scontinued by another clinician) acetaminophen (Tylenol 8 Hour) 650 mg 8 hr tablet Take 1 tablet (650 mg total) by mouth every 8 (eight) hours if needed for mild pain for up to 10 days. Do not crush, chew, or split. 90 tablet 1 05/16/19 25 025 carbamide peroxide (DEBROX) 6.5 % otic solution Administer 5-10 drops into the right ear 2 (two) times a day for 4 days. 15 mL 05/16/19 25 025 Active Problems Problem Noted Date Diagnosed Date Dementia 09/12/2022 Overview (02/08/2024): Stout neurology and sleep Hyperlipidemia 03/06/2022 Gastroesophageal reflux disease 06/14/2021 Hypothyroidism Overview (05/16/2024): DX:Hypothyroidism Encounters Date Type Department Care Team Description 05/16/2024 2:30 PM EST Office Visit Campaign Manager - [facility] [address] [place] [phone] Tito Stiles PA Hypothyroidism, unspecified type (Primary Dx); Mixed hyperlipidemia; Chronic pain of right knee; Dementia, unspecified dementia severity, unspecified dementia type, unspecified whether behavioral, psychotic, or mood disturbance or anxiety (CMS/[facility]) 05/16/2024 Telephone Campaign Manager - [facility] [address] [place] [phone] Afia Rhoades [place] 05/12/2024 [facility]phone [facility] [address] [facility] [place] [phone] Teodoro Fernandez MD Faxed Order ([facility] ) 04/25/2024 Telephone Campaign Manager - [facility] [address] [facility] [address] [place] [phone] Teodoro Fernandez MD Letter for School/Work (letter) 04/18/2024 Telephone Campaign Manager - [facility] [address] [facility] [address] [place] [phone] Teodoro Fernandez MD faxed order ([facility]) from Last 3 Months Immunizations Name Administration Dates Next Due Pfizer SARS-CoV-2 COVID-19, mRNA, LNP-S, preservative free 05/16/2021,04/25/2021 Pneumococcal conjugate 20 va lent (Prevnar 20, PCV 20) 2mo and older 05/03/2023 Pneumococcal polysaccharide 23 valent (Pneumovax 23) 2yo and older 10/19/2021 Td Tetanus diptheria (Tdvax) 7yo and older 10/19 Surgical History Surgery Date Site/Laterality Comments OTHER SURGICAL HISTORY PROCEDURE: DENIES PREVIOUS SURGERY Medical History Medical History Date Comments HTN (hypertension) DX:HTN (hyper tension) Hypothyroidism DX:Hypothyroidis m Family History Medical History Relation Name Comments Hypertension Brother Alzheimer's disease Father Relation Name Status Comments Brother Alive Father Mother Social History Tobacco Use Types [...] on file Sexual Orientation Not on file Obstetrics History Last Filed Vital Signs Vital Sign Reading Time Taken Comments Blood Pressure 128/86 05/16/2024 2:34 PM EST Pulse 72 05/16/2024 2:34 PM EST Temperature - - Respiratory Rate - - Oxygen Saturation - - Inhaled Oxygen Concentration - - Weight 82.9 kg (182 lb 12.8 oz) 05/16/2024 2:34 PM EST Height 157.5 cm (5' 2 ) 11/12/2023 12:0 2 PM EDT Body Mass Index 33.43 11/12/2023 12:02 PM EDT Plan of Treatment Upcoming Encounters Date Type Department Care Team (Late st Contact Info) Description 06/19/2024 1:00 PM EDT Office Visit Campaign Manager - [facility] [address] [place], [place] [phone] Tito Stiles PA [address] [place] [address] Health Maintenance Due Date Last Done Comments Zoster Vaccines (1 of 2) 1999 Colorectal Cancer Screening: Colonoscopy 03/12/2022 Falls Risk Assessment 03/12/2022 Hepatitis C Screening 03/12/2022 Osteoporosis Screening (Bone Density Screening) 03/12/2022 Social Influencers of Health Screening 03/12/2022 COVID-19 Vaccine (3 - 2023-2 5 season) 2023 05/16/2021, 04/25/2021 Influenza Vaccine (#1) 2023 9, 03/13/2017, 2016 RSV Immunization Patients 60 + Years Old (1 - 1-dose 75+ series) 2024 Depression Screening 11/11/2024 11/12/2023 Medicare Annual Wellness Visit 11/11/2024 11/12/2023 Cholesterol Screening (Lipid Panel) 04/21/2027 04/21/2022 DTaP,Tdap,and Td Vaccines (2 - Td or Tdap) 10/20/2031 10/19/2021 Pneumococcal Vaccine: 50+ Years Completed 05/03/2023, 10/19/2021 HIB Vaccines Aged Out No longer eligi ble based on patient's age to complete this topic HPV Vaccines Aged Out No longer eligi ble based on patient's age to complete this topic Hepatitis A Vaccines Aged Out No long er eligible based on patient's age to complete this topic Hepatitis B Vaccines Aged Out No long er eligible based on patient's age to complete this topic IPV Vaccines Aged Out No longer eligi ble based on patient's age to complete this topic MMR Vaccines Aged Out No longer eligi ble based on patient's age to complete this topic Meningococcal ACWY Vaccine Aged Out N o longer eligible based on patient's age to complete this topic Meningococcal B Vacine Aged Out No lo nger eligible based on patient's age to complete this topic RSV Immunization Patients Under 20 months Aged Out No longer eligible b ased on patient's age to complete this topic Varicella Vaccines Aged Out No longer eligible based on patient's age to complete this topic Procedures Procedure Name Priority Date/Time Associated Diagnosis Comments TRIIODOTHYRONINE FREE Routine 05/16/2024 3:23 PM EST Hypothyroidism, unspecified type FREE THYROXINE WITH REFLEX TO FREE TRIIODOTHYRONINE Routine 05/16/2024 3:23 PM EST Hypothyroidism, unspecified type THYROID STIMULATING HORMONE WITH REFLEX TO FREE T4 AND FREE T3 Routine 05/16/2024 3:23 PM EST Hypothyroidism, unspecified type COMPREHENSIVE METABOLIC PANEL Routine 05/16/2024 3:23 PM EST Mixed hyperlipidemia HM DEPRESSION SCREENING Routine 11/12/2023 LIPID PANEL Routine 04/21/2022 from Last 3 Months or Most Recently Relevant to Health Maintenance Results * (ABNORMAL) Thyroid stimulating hormone with reflex to free t4 and free t3 (05/16/2024 3:23 PM EST) TSH 8.72(H) 0.40 - 4.00 mcIU/mL LAB CHEMISTRY METHOD 05/16/2024 7:04 PM EST [facility] Blood Venous blood specimen / Unknown Venipuncture / Unknown 05/16/2024 3:23 PM EST 05/16/2024 3:23 PM EST us Tito CORDOVA LAB BLOOD ORDERABLES Fi nal Result [facility] [address] [place] [address], [place] [phone] * Free thyroxine with reflex to free triiodothyronine (05/16/2024 3:23 PM EST) [facility] Free T4 1.06 0.70 - 1.80 ng/dL LAB CHEMISTRY METHOD 05/16/2024 7:29 PM EST [facility] Blood Venous blood specimen / Unknown Venipuncture / Unknown 05/16/2024 3:23 PM EST 05/16/2024 3:23 PM EST Tito CORDOVA LAB BLOOD ORDERABLES Fi nal Result Performing Organization Address City/[facility]/ZIP Co de Phone Number [facility] [address] [place] [address], [place] [phone] * Triiodothyronine free (05/16/2024 3:23 PM EST) [facility] T3, Free 270 230 - 420 pcg/dL LAB CHEMISTRY METHOD 05/16/2024 7:54 PM EST [facility] Blood Venous blood specimen / Unknown Venipuncture / Unknown 05/16/2024 3:23 PM EST 05/16/2024 3:23 PM EST Tito CORDOVA LAB BLOOD ORDERABLES Fi nal Result Performing Organization Address City/[facility]/ZIP Co de Phone Number [facility] [address] [place] [address], [place] [phone] * (ABNORMAL) Comprehensive metabolic panel (05/16/2024 3:23 PM EST) [facility] Sodium 144 133 - 145 mmol/L LAB CHEMISTRY METHOD 05/16/2024 7:00 PM EST [facility] Potassium 4.2 3.5 - 5.5 mmol/L LAB CHEMISTRY METHOD 05/16/2024 7:00 PM EST [facility] Chloride 110 96 - 110 mmol/L LAB CHEMISTRY METHOD 05/16/2024 7:00 PM [facility] CO2 32 21 - 32 mmol/L LAB CHEMISTRY METHOD 05/16/2024 7:00 PM [facility] Anion Gap 2(L) 3 - 11 LAB CHEMISTRY METHOD 05/16/2024 7:00 PM [facility] Glucose 73 70 - 100 mg/dL LAB CHEMISTRY METHOD 05/16/2024 7:00 PM [facility] BUN 15 5 - 25 mg/dL LAB CHEMISTRY METHOD 05/16/2024 7:00 PM [facility] Creatinine 0.66 0.50 - 1.10 mg/dL LAB CHEMISTRY METHOD 05/16/2024 7:00 PM [facility] eGFR 92 >=60 mL/min/1. 73m2 LAB CHEMISTRY METHOD 05/16/2024 7:00 PM [facility] Comment:Calculation based on the??Chronic Kidney Disease Epidemiology Collaboration (CKD-EPI) equation refit??without adjustment for race. BUN/Creatinine Ratio 22.7 LAB CHEMISTRY METHOD 05/16/2024 7:00 PM [facility] Calcium 9.7 8.5 - 10.5 mg/dL LAB CHEMISTRY METHOD 05/16/2024 7:00 PM [facility] AST (SGOT) 22 10 - 42 unit/L LAB CHEMISTRY METHOD 05/16/2024 7:00 PM [facility] ALT (SGPT) 21 10 - 60 unit/L LAB CHEMISTRY METHOD 05/16/2024 7:00 PM [facility] Alkaline Phosphatase 89 42 - 121 unit/L LAB CHEMISTRY METHOD 05/16/2024 7:00 PM [facility] Total Protein 7.9 6.0 - 8.0 g/dL LAB CHEMISTRY METHOD 05/16/2024 7:00 PM [facility] Albumin 4.0 3.2 - 5.0 g/dL LAB CHEMISTRY METHOD 05/16/2024 7:00 PM EST [facility] Total Bilirubin 0.3 0.0 - 1.4 mg/dL LAB CHEMISTRY METHOD 05/16/2024 7:00 PM EST [facility] Blood Venous blood specimen / Unknown Venipuncture / Unknown 05/16/2024 3:23 PM EST 05/16/2024 3:23 PM EST Tito CORDOVA LAB BLOOD ORDERABLES Fi nal Result [facility]) [facility] [address] [place] [address], * Depression Screening (11/12/2023) Pathologist [facility] Depression Screening abstracted Historical Provider HEALTH MAINTENANCE Final Result * Lipid panel (04/21/2022) Pathologist [facility] LDL/HDL Ratio 2 0 - 4 Triglycerides 69 0 - 150 mg/dL Cholesterol 192 0 - 200 mg/dL HDL 95 >=40 mg/dL LDL Cholesterol 84 0 - 100 mg/dL Blood Venous blood specimen / Unknown Historical Provider LAB BLOOD ORDERABLES Melissa l Result from Last 3 Months or Most Recently Relevant to Health Maintenance Insurance MEDICARE [place]ICAID - [place] Advance Directives Documents on File Type Date Recorded Patient Cellophane Tester Expl [facility] Care Decision (hx) 02/09/2021 DELANO RICHARDSON DIRECTIVE Care Teams Furniture Detailer Relationship Specialty Start Date End Date Teodoro Fernandez MD [address] [place] [id number] PCP - General Internal Medicine 03/10/24
== END 2024-06-03 09:36 | disposition home or self-care (01) ==
PROVIDERS: PCP Internal Medicine; Visit Provider Nurse Practitioner Family
DX: F03.90 Unspecified dementia, unspecified severity, without behavioral disturbance, psychotic disturbance, mood disturbance, and anxiety (principal); R41.89 Other symptoms and signs involving cognitive functions and awareness; R46.89 Other symptoms and signs involving appearance and behavior
CPT/HCPCS: 99214

== ENCOUNTER → 2024-06-03 08:49 | Outpatient (BNVA) | payer MEDICARE, MEDICAID, SELFPAY | PROVIDERS: PCP Internal Medicine; Visit Provider Nurse Practitioner Family | DX: F03.918 Unspecified dementia, unspecified severity, with other behavioral disturbance (principal); R41.89 Other symptoms and signs involving cognitive functions and awareness | CPT/HCPCS: 99212 ==

== ENCOUNTER 2024-12-05 08:54 | Outpatient (AMB) | payer MEDICARE, MEDICAID, SELFPAY ==
--- NOTE | 2024-12-05 09:07 | MHC.OFFVIS ---
Vital Signs 12/05/24 09:08 Weight 188 lb BP 130/100 H Comment Unable to obtaine pulse and O2 due to nails Intake Visit Reasons: 6 mo follow up Intake Note: Patient presents follow up Dementia medication follow up Data Entry Assistant Required: No Accompanied by: Son Allergies No Known Allergies Allergy (Verified 12/05/24 09:12) HPI Comments Details: 73-yr-old female presents for f/u visit for dementia. Pt is accompanied by her son, Srinivasan (Odalys's ). Patient denies interval history changes. However, she states she is quite bothered by right ear ringing. She denies recent URI s/s. Recently was prescribed drops to reduce wax buildup, harvest was not helpful. She denies dizziness, headaches, ear pain. Overall patient is better. Pt's cognition remain stable. Though there is still forgetfulness repetitiveness. LTM is better. She continues to use support with ADLs and IADLs. More particular with her color choices. She may hide things. She is she is still particular w/ what she eats- the food is always too something . Son is giving her her prefer yogurts and ensures. She did receive the new dentures, unfortunately she just lost the bottom ones. Her family is managing and giving her her medications. Denies any other behaviors. Not needing to use the prn quetiapine, but preet scheduled dose is helpful. She is sleeping well. She is walking with her son, likes to takes walks in the park. Patient states she has some mild arthritic pain, that does not interfere with her walks. Denies any issues related to bowel and bladder. She continues to go to her day program 5 days per week which she likes- plays games, puzzles, and has friends there. [facility], [facility] Medical History Anxiety GERD (gastroesophageal reflux disease) HTN (hypertension) Hyperlipidemia Hypothyroidism Family History Father Cancer Mother Cancer Brother Cancer Sister Tumors Brother Stroke Social History Alcohol intake: never Patient Tobacco Use Status: Never used Tobacco Physical Exam Vital Signs: Last Vital Signs BP 130/100 H 12/05/24 09:08 Const General: cooperative and no acute distress HEENT Other: Right external ear canal fully occluded due to presence of wax Left external ear canal mild wax, with normal TM. No external ear pain. Resp Effort & Inspection: normal respiratory effort and able to speak in complete sentences Neuro Other: Alert to person and place. Responds appropriately w/ STM lapses. Unable to state date, year, season. Patient specifically states she does not know the season, as she has not read the newspaper recently. General: CN's II-XI intact bilaterally Motor exam (neuro): 5/5 motor strength present throughout Psych Appearance: grossly normal Assessment & Plan Assessment & Plan (1) Dementia: Comment: Likely Alzheimer's. Brain MRI w/o indications of vascular insults. Code(s): F03.90 - Unspecified dementia, unspecified severity, without behavioral disturbance, psychotic disturbance, mood disturbance, and anxiety Category: Medical Qualifiers: Dementia behavioral or psychological symptom: with other behavioral disturbance Dementia severity: moderate Dementia type: Alzheimer's Alzheimer's disease onset: unspecified onset Qualified Code(s): G30.9 - Alzheimer's disease, unspecified; F02.B18 - Dementia in other diseases classified elsewhere, moderate, with other behavioral disturbance (2) Cognitive and behavioral changes: Comment: Likely dementia - alzheimers vs mixed Code(s): R41.89 - Other symptoms and signs involving cognitive functions and awareness; R46.89 - Other symptoms and signs involving appearance and behavior Category: Medical Plan For dementia and behavioral changes:: Memantine 28 mg ER daily. Donepezil 10 mg qHS. Sertraline 25 mg daily Vitamin D supplement Quetiapine 12.5 mg qHS for hallucination and anxiety. May take extra 1/2 tab per day prn. Melatonin 3-6 mg qHS prn sleep. If patient wants to travel again, we will supply a short course of Lorazepam 0.5mg prn- which has been beneficial in the past. Continue 24/ supportive care. Patient's son has a plan to look for patient's lower dentures. Patient lives supportive environment, and is well supervised. Continue to engage in regular cognitive and physical activity. Continue to engage in regular physical activity with family supervision Continue day program. Continue behavioral modification strategies to redirect pt, offer limited choices, not engage in direct confrontations/arguments. Alzheimer's association website is a good resource. Pt to follow-up in 6 months or sooner prn. Coding Level of Care Code Est Pt Level 4 (33070) Diagnoses Moderate Alzheimer's dementia with other behavioral disturbance, unspecified timing of dementia onset G30.9; F02.B18 Dementia behavioral or psychological symptom: with other behavioral disturbance Dementia severity: moderate Dementia type: Alzheimer's Alzheimer's disease onset: unspecified onset Cognitive and behavioral changes R41.89; R46.89
[2024-12-05 09:08] VITALS: BP 130/100
--- OUTSIDE RECORDS SUMMARY | 2024-12-05 09:28 | XMS_ITS ---
Author Name [facility] Organization Unknown Care Team Organization Name Specialty Phone Email Start Date End Da stanislav [facility] Tito Stiles Primary Care 09/08/202210/31
--- OUTSIDE RECORDS SUMMARY | 2024-12-05 09:28 | XMS_ITS | Clinical Summary ---
Author Organization [facility] [address] [facility] Building Address [address] [place] [address] Phone Care Team Providers Care Rack Maker Name Role Phone Teodoro Fernandez MD Primary Care Provider Allergies No known active allergies Medications cholecalciferol (VITAMIN D-3) 25 mcg (1,000 unit) tablet Take 1,000 Int'l Units by mouth daily. Active donepeziL (ARICEPT) 10 mg tablet Take 1 tablet (10 mg total) by mouth. at bedtime. Active LORazepam (ATIVAN) 0.5 mg tablet Take 1 Tablet by mouth daily as needed for Anxiety (prior to flying). 09/12/2022 Active omeprazole (PriLOSEC) [address] capsule Take 1 capsule (20 mg total) by mouth 1 (one) time each day. 04/25/2023 Active QUEtiapine (SEROquel) 25 mg tablet Take 0.5 tablets (12.5 mg total) by mouth at bedtime. 11/12/2023 Active levothyroxine (SYNTHROID, LEVOTHROID) 75 mcg tablet Take 1 tablet (75 mcg total) by mouth 1 (one) time each day. 90 each 1 06/11/2024 06/12/19 26 Active sertraline (ZOLOFT) 25 mg tablet TAKE 1 TABLET BY MOUTH EVERY DAY 90 tablet 1 06/12/2024 Active rosuvastatin (CRESTOR) 20 mg tablet TAKE 1 TABLET (20 MG TOTAL) BY MOUTH ONE TIME EACH DAY 90 tablet 1 10/13/2024 Active memantine (NAMENDA XR) 7 mg extended release capsule TAKE 1 CAPSULE (7 MG TOTAL) BY MOUTH 1 (ONE) TIME EACH DAY. 90 capsule 1 10/15/2024 Active acetaminophen (Tylenol Arthritis Pain) 650 mg 8 hr tablet Take 1 tablet (650 mg total) by mouth every 8 (eight) hours if needed for mild pain for up to 10 days. Do not crush, chew, or split. 90 tablet 1 11/14/2024 11/25/19 25 Active Problems Problem Noted Date Diagnosed Date Cerebrovascular disease 08/29/2024 Dementia ([facility] V24, [facility] V28) 09/12/2022 Overview (02/08/2024): [place] [facility] Hyperlipidemia 03/06/2022 Gastroesophageal reflux disease 06/14/2021 Hypothyroidism Overview (05/16/2024): DX:Hypothyroidism Encounters Date Type Department Care Team Description 11/14/2024 1:30 PM EDT Office Visit Internal Medicine - [facility] [address] [place] [address] Tito Stiles PA Hypothyroidism, unspecified type (Primary Dx); Mixed hyperlipidemia; Dementia, unspecified dementia severity, unspecified dementia type, unspecified whether behavioral, psychotic, or mood disturbance or anxiety ([facility] V24, [facility] V28); Health maintenance examination 11/14/2024 Telephone Internal Medicine - [address] [phone] Jannie Jim MA from Last 3 Months Immunizations Name Administration [...] Sign Reading Time Taken Comments Blood Pressure 122/80 11/14/2024 1:35 PM EDT Pulse 72 11/14/2024 1:35 PM EDT Temperature - - Respiratory Rate 16 11/14/2024 1:35 PM EDT Oxygen Saturation - - Inhaled Oxygen Concentration - - Weight 86.3 kg (190 lb 3.2 oz) 11/14/2024 1:35 P M EDT Height 157.5 cm (5' 2 ) 11/12/2023 12:02 PM EDT Body Mass Index 34.79 11/12/2023 12:02 PM EDT Plan of Treatment Upcoming Encounters Date Type Department Care Team (Late st Contact Info) Description 05/18/2025 2:00 PM EST Office Visit Internal Medicine - [facility] [address] [place] [phone] Tito Stiles PA [address] [place] [phone] Health Maintenance Due Date Last Done Comments Zoster Vaccines (1 of 2) 1999 Colorectal Cancer Screening: Colonoscopy 03/12/2022 Falls Risk Assessment 03/12/2022 Hepatitis C Screening 03/12/2022 Osteoporosis Screening (Bone Density Screening) 03/12/2022 Social Influencers of Health Screening 03/12/2022 RSV Immunization Adult Patients (1 - 1-dose 75+ series) 2024 Depression Screening 04/02/2024 11/12/2023 Medicare Annual Wellness Visit 11/11/2024 11/12/2023 COVID-19 Vaccine (3 - 2024-2 6 season) 2024 05/16/2021, 04/25/2021 Influenza Vaccine (#1) 2024 9, 03/13/2017, 2016 Hypertension/CHF/CAD Annual BMP Blood Test 11/14/2025 11/14/2024, 05/16/2024, 05/03/2023 Cholesterol Screening (Lipid Panel) 04/21/2027 04/21/2022 DTaP,Tdap,and [...] age to complete this topic Meningococcal B Vaccine Aged Out No l onger eligible based on patient's age to complete this topic RSV Immunization Patients Under 20 months Aged Out No longer eligible b ased on patient's age to complete this topic Varicella Vaccines Aged Out No longer eligible based on patient's age to complete this topic Procedures Procedure Name Priority Date/Time Associated Diagnosis Comments THYROID STIMULATING HORMONE WITH REFLEX TO FREE T4 AND FREE T3 Routine 11/14/2024 2:03 PM EDT Hypothyroidism, unspecified type BASIC METABOLIC PANEL Routine 11/14/2024 2:03 PM EDT Mixed hyperlipidemia ASPARTATE AMINOTRANSFERASE Routine 11/14/2024 2:03 PM EDT Mixed hyperlipidemia ALANINE AMINOTRANSFERASE Routine 11/14/2024 2:03 PM EDT Mixed hyperlipidemia HM DEPRESSION SCREENING Routine 11/12/2023 LIPID PANEL Routine 04/21/2022 from Last 3 Months or Most Recently Relevant to Health Maintenance Results * Thyroid stimulating hormone with reflex to free t4 and free t3 (11/14/2024 2:03 PM EDT) TSH 2.23 0.40 - 4.00 mcIU/mL LAB CHEMISTRY METHOD 11/14/2024 4:42 PM EDT [facility] Blood Venous blood specimen / Unknown Venipuncture / Unknown 11/14/2024 2:03 PM EDT 11/14/2024 2:03 PM EDT Tito CORDOVA LAB BLOOD ORDERABLES Fi nal Result Performing Organization Address [facility]/ZIP Co de Phone Number [facility] [address] [place] [address], [place] [phone] * Alanine aminotransferase (11/14/2024 2:03 PM EDT) [facility] ALT (SGPT) 26 10 - 60 unit/L LAB CHEMISTRY METHOD 11/14/2024 4:14 PM EDT [facility] Blood Venous blood specimen / Unknown Venipuncture / Unknown 11/14/2024 2:03 PM EDT 11/14/2024 2:03 PM EDT Tito CORDOVA LAB BLOOD ORDERABLES Fi nal Result Performing Organization Address City/[facility]/ZIP Co de Phone Number [facility] [address] [place] [address], [place] [phone] * Aspartate aminotransferase (11/14/2024 2:03 PM EDT) AST (SGOT) 32 10 - 42 unit/L LAB CHEMISTRY METHOD 11/14/2024 4:14 PM EDT [facility] Blood Venous blood specimen / Unknown Venipuncture / Unknown 11/14/2024 2:03 PM EDT 11/14/2024 2:03 PM EDT Tito CORDOVA LAB BLOOD ORDERABLES Fi nal Result [facility] [address] [place] [address], [place] [phone] * Basic metabolic panel (11/14/2024 2:03 PM EDT) Sodium 140 133 - 145 mmol/L LAB CHEMISTRY METHOD 11/14/2024 4:14 PM [facility] Potassium 4.1 3.5 - 5.5 mmol/L LAB CHEMISTRY METHOD 11/14/2024 4:14 PM [facility] Chloride 106 96 - 110 mmol/L LAB CHEMISTRY METHOD 11/14/2024 4:14 PM [facility] CO2 29 21 - 32 mmol/L LAB CHEMISTRY METHOD 11/14/2024 4:14 PM [facility] Anion Gap 5 3 - 11 LAB CHEMISTRY METHOD 11/14/2024 4:14 PM [facility] Glucose 78 70 - 100 mg/dL LAB CHEMISTRY METHOD 11/14/2024 4:14 PM [facility] BUN 16 5 - 25 mg/dL LAB CHEMISTRY METHOD 11/14/2024 4:14 PM [facility] Creatinine 0.68 0.50 - 1.10 mg/dL LAB CHEMISTRY METHOD 11/14/2024 4:14 PM [facility] eGFR 91 >=60 mL/min/1. 73m2 LAB CHEMISTRY METHOD 11/14/2024 4:14 PM [facility] Comment:Calculation based on the Chronic Kidney Disease Epidemiology Collaboration (CKD-EPI) equation refit without adjustment for race. BUN/Creatinine Ratio 23.5 LAB CHEMISTRY METHOD 11/14/2024 4:14 PM EDT [facility] Calcium 9.3 8.5 - 10.5 mg/dL LAB CHEMISTRY METHOD 11/14/2024 4:14 PM EDT [facility] Blood Venous blood specimen / Unknown Venipuncture / Unknown 11/14/2024 2:03 PM EDT 11/14/2024 2:03 PM EDT Tito CORDOVA LAB BLOOD ORDERABLES Fi nal Result [facility] [address] [place] [address], * Depression Screening (11/12/2023) Depression Screening abstracted Historical Provider HEALTH MAINTENANCE Final Result * Lipid panel (04/21/2022) LDL/HDL Ratio 2 0 - 4 Triglycerides 69 0 - 150 mg/dL Cholesterol 192 0 - 200 mg/dL HDL 95 >=40 mg/dL LDL Cholesterol 84 0 - 100 mg/dL Blood Venous blood specimen / Unknown Historical Provider LAB BLOOD ORDERABLES Melissa l Result from Last 3 Months or Most Recently Relevant to Health Maintenance Insurance MEDICARE [facility] Member Subscriber Plan / Payer (Ef fective 2024-Present) Name:Kyung Alexandra Relation to Subscriber:Self Name:Kyung Alexandra Payer ID:[id number] Group ID:[id number] Type:Not on file Address: [place] [address] [address] [id number] Advance Directives Documents on File Type Date Recorded Patient It Technician Expl [facility] Health Care Decision (hx) 02/09/2021 AD RICHARDSON DIRECTIVE Care Teams Rack Maker Relationship Specialty Start Date End Date Teodoro Fernandez MD [address] [place] [address] PCP - General Internal Medicine 03/10/24
--- OUTSIDE RECORDS SUMMARY | 2024-12-05 09:28 | XMS_ITS | Clinical Summary ---
Author Organization [facility] Address [address] [place] [address] Care Team Providers Care Geographic Information Systems Analyst Name Role Phone Kayla Patrick PA-C Primary Care Provider [phone] Source Comments PLEASE NOTE, if this patient [...] 68 07/08/2020 3:39 PM EDT Temperature 36.5 C (97.7 F) 07/08/2020 3:39 PM EDT Respiratory Rate 20 07/08/2020 3:39 PM EDT [...] Fecal DNA 1994 Flexible Sigmoidoscopy 1994 Imm-Pneumococcal 50+ (1 of 1 - PCV) 1999 Imm-Zoster, Recombinant (1 of 2) 1999 Bone Density Screening 2014 Falls Prevention 2014 Depression Monitoring 10/07/2020 07/08/2020 Imm-RSV (adult) (1 - 1-dose 75+ series) 2024 Alcohol and Drug Screen 04/02/2024 07/08/2020 [id number] ( season) 2024 Imm-Influenza (#1) 2024 11/27/2018, 1 05/14/2016, 2016 [place] Care Teams Geographic Information Systems Analyst Relationship Specialty Start Date End Date Kayla Patrick PA-C [address] [place] [address] PCP - General FAMILY MEDICINE, [place] 07/07/20
== END 2024-12-05 09:53 | disposition home or self-care (01) ==
LOC: HO.HSMS 08:54
PROVIDERS: PCP Internal Medicine; Visit Provider Nurse Practitioner Family
DX: G30.9 Alzheimer's disease, unspecified (principal); F02.B18 Dementia in other diseases classified elsewhere, moderate, with other behavioral disturbance; R41.89 Other symptoms and signs involving cognitive functions and awareness; R46.89 Other symptoms and signs involving appearance and behavior
CPT/HCPCS: 99214

== ENCOUNTER → 2024-12-05 08:54 | Outpatient (BNVA) | payer OTHER, SELFPAY | PROVIDERS: PCP Internal Medicine; Visit Provider Nurse Practitioner Family | DX: G30.9 Alzheimer's disease, unspecified (principal); F02.B18 Dementia in other diseases classified elsewhere, moderate, with other behavioral disturbance; R41.89 Other symptoms and signs involving cognitive functions and awareness | CPT/HCPCS: 99212 ==